=== PATIENT | male | born 1940 ===

== ENCOUNTER 2021-01-06 15:51 | Emergency (ER) | payer SELFPAY ==
[~2021-01-06] VITALS: Ht 172.7 cm; Wt 78.6 kg
[2021-01-06 15:58] VITALS: BP 183/69; Ht 172.7 cm; Wt 78.6 kg
[2021-01-06 16:37] LABS: BASOPHILS 0.1 % (0-2); EOSINOPHILS 1.6 % (0-7); HEMATOCRIT 38.3 % (42.0-54.0); HEMOGLOBIN 12.3 g/dL (13.5-17.5); IMMATURE GRANULOCYTES 0.2 % (0-5); LYMPHOCYTE ABS# 1.91 10x3/uL (1.32-3.57); LYMPHOCYTES 15.6 % (15-50); MCH 31.4 pg (26.0-34.0); MCHC 32.1 g/dL (31.0-37.0); MCV 97.7 fL (80.0-100.0); MEAN PLATELET VOLUME 9.1 fL (7.4-10.4); MONOCYTES 12.2 % (2-11); NEUTROPHIL ABS# 8.62 10x3/uL (1.78-5.38); NEUTROPHILS 70.3 % (40-80); PLATELET COUNT 234 10x3/uL (130-400); RBC 3.92 10x6/uL (4.20-6.10); RDW 12.3 % (11.5-14.5); WBC 12.3 10x3/uL (4.8-10.8)
[2021-01-06 16:54] LABS: CALC OSMOLALITY 286 mosm/kg (275-300); CARBON DIOXIDE 27.4 mmol/L (21.0-32.0); CHLORIDE - SERUM 102 mmol/L (98-107); GLUCOSE 112 mg/dL (74-106); POTASSIUM - SERUM 4.9 mmol/L (3.5-5.1); SODIUM 138 mmol/L (136-145); UREA NITROGEN 40 mg/dL (7-18); eGFR NON AFRICAN AMERICAN 34 mL/min (90-120)
[2021-01-06 17:03] LABS: ALBUMIN 3.3 g/dL (3.4-5.0); ALKALINE PHOSPHATASE 81 U/L (30-120); ALT (SGPT) 24 U/L (10-68); AMYLASE - SERUM 63 U/L (25-115); BILIRUBIN - TOTAL 0.56 mg/dL (0.2-1.3); LIPASE 77 U/L (73-393); PROTEIN - SERUM 7.7 g/dL (6.4-8.2)
[2021-01-06 17:09] LABS: TROPONIN-I < 0.017 ng/mL (0.000-0.060)
[2021-01-06 17:31] LABS: BILIRUBIN NEGATIVE (NEGATIVE); KETONE NEGATIVE (NEGATIVE); NITRITE NEGATIVE (NEGATIVE); UROBILINOGEN NORMAL mg/dL (< 2)
== END 2021-01-06 18:27 | disposition home or self-care (01) ==
LOC: D.ER 15:51
PROVIDERS: Family Medicine
DX: K59.00 Constipation, unspecified (principal); Z86.73 Personal history of transient ischemic attack (TIA), and cerebral infarction without residual deficits; I10 Essential (primary) hypertension; K21.9 Gastro-esophageal reflux disease without esophagitis; R10.30 Lower abdominal pain, unspecified